=== PATIENT | male | born 1985 | race Caucasian/White ===

== ENCOUNTER 2017-11-04 20:01 | Emergency (ER) | END 2017-11-05 03:38 | disposition home or self-care (01) ==

== ENCOUNTER 2018-09-04 16:48 | Emergency (ER) | payer BC, MEDICAID ==
[~2018-09-04] VITALS: Ht 162.6 cm; Wt 120.0 kg
[~2018-09-04 16:48] MED LIST: ASPI-817 PO; FAMO-96 PO; HYDR-3498 PO; HYDR50TA15 PO
[2018-09-04 16:59] VITALS: Ht 162.6 cm; Wt 120.0 kg
--- NOTE | 2018-09-04 20:03 | ERD ---
ER Documentation Chief Complaint Chief Complaint "lump" noted on lateral L upper thigh side x 1 month HPI 32-year-old Fe male complaining of a "lump" on his lateral left thigh. Patient states that he had this lump for about 1 month, and last few days is starting to bother him. Described the sensation as irritating, but not painful. Denies injury. Denies erythema or exudate. Denies fever or chills. ROS All systems reviewed and are negative except as per history of present illness. Medications Home Meds Active Scripts Aspirin* (Aspirin* EC) 81 Mg Tablet.dr, 81 MG PO DAILY for 30 Days, TAB Prov:PASILABAN,KLAR F 11/05/17 Hydroxyzine Hcl* (Hydroxyzine Hcl*) 50 Mg Tablet, 50 MG PO Q6 PRN for ANXIETY, #40 TAB Prov:PASILABAN,KLAR F 11/05/17 Famotidine* (Pepcid*) 20 Mg Tablet, 20 MG PO BID for 4 Days, TAB Prov:ARSENIO COTTER PA-C 02/03/16 Hydrocodone Bit-Acetaminophen* (Otho*) 5-325 Mg Tab, 1 TAB PO Q6 PRN for PAIN, #7 TAB Prov:ARSENIO COTTER PA-C 02/03/16 Allergies Allergies: Coded Allergies: No Known Allergy (Unverified , 02/02/16) PMhx/Soc History of Surgery: Yes (RIGHT FOOT SX) Anesthesia Reaction: No Hx Neurological Disorder: No Hx Respiratory Disorders: No Hx Cardiac Disorders: No Hx Psychiatric Problems: No Hx Miscellaneous Medical Probl: No Hx Alcohol Use: Yes (STOPPED IN 2014) Hx Substance Use: Yes (MARIJUANA DAILY) Hx Tobacco Use: Yes Smoking Status: Current every day smoker Physical Exam Vitals Vital Signs Date Temp Pulse Resp B/P (MAP) Pulse Ox O2 O2 Flow FiO2 Time Delivery Rate 09/04/18 100.2 94 20 165/86 98 16:59 (112) Physical Exam General: Well-developed, w obese, conscious and coherent, in no distress Skin: Warm and dry without rash, good texture and turgor. No erythema, edema, or mass appreciated in the left lateral thigh, nontender. Head: Normocephalic without evidence of trauma Chest: Normal AP diameter. Good expansion without retractions. Nontender. Lungs are clear to auscultate bilaterally with good tidal volume Heart: Regular rate and rhythm. No murmur, rub, or gallops heard Extremities: Full range of motion. Good strength bilaterally. No erythema, ecchymosis, or edema. Peripheral pulses are intact. Sensation intact Neuro: Alert and oriented 4, GCS 15. Procedures/MDM Well-appearing obese 32-year-old male presents the ED complaining of a "lump" on his left upper thigh. On exam, the area that patient concerned to be a lump or normal fatty tissue. No mass, cellulitis, or abscess. Weight loss counseling provided to the patient. Patient appears well, stable for discharge and outpatient management. Medical decision making shared with patient and family. Education provided to patient and family. Patient and family expressed understanding of the plan. Medications on discharge: None. Follow-up: Primary care provider in 2-3 days or return to ED if worse. Disclaimer: Inadvertent spelling and grammatical errors are likely due to EHR/dictation software use and do not reflect on the overall quality of patient care. Also, please note that the electronic time recorded on this note does not necessarily reflect the actual time of the patient encounter. Departure Diagnosis: Primary Impression: Worried well Additional Impression: Obesity Condition: Stable Patient Instructions: Weight Management: Getting Started, Weight Management: Healthy Eating, Weight Management: Exercise and Activity Referrals: [facility] YOU HAVE RECEIVED A MEDICAL SCREENING EXAM AND THE RESULTS INDICATE THAT YOU DO NOT HAVE A CONDITION THAT REQUIRES URGENT TREATMENT IN THE EMERGENCY DEPARTMENT. FURTHER EVALUATION AND TREATMENT OF YOUR CONDITION CAN WAIT UNTIL YOU ARE SEEN IN YOUR DOCTORS OFFICE WITHIN THE NEXT 1-2 DAYS. IT IS YOUR RESPONSIBILITY TO MAKE AN APPOINTMENT FOR FOLOW-UP CARE. IF YOU HAVE A PRIMARY DOCTOR --you should call your primary doctor and schedule an appointment IF YOU DO NOT HAVE A PRIMARY DOCTOR YOU CAN CALL OUR PHYSICIAN REFERRAL HOTLINE AT IF YOU CAN NOT AFFORD TO SEE A PHYSICIAN YOU CAN CHOSE FROM THE FOLLOWING [facility] [address] [place] [facility] [address] [facility] [address] [facility] [address] [facility]. [facility] [address] [facility]. [facility] [address] Additional Instructions: FOLLOW UP WITH YOUR PRIMARY CARE PHYSICIAN. ARTURO ZAVALA NP Sep 04, 2018 20:03
[2018-09-04 20:18] VITALS: BP 135/86; PULSE 74; RESP 18
== END 2018-09-04 20:23 | disposition home or self-care (01) ==
LOC: FTE 16:48
DX: E66.9 Obesity, unspecified (principal); F17.210 Nicotine dependence, cigarettes, uncomplicated; R40.2412 Glasgow coma scale score 13-15, at arrival to emergency department; Z68.42 Body mass index [BMI] 45.0-49.9, adult; Z71.1 Person with feared health complaint in whom no diagnosis is made; Z79.82 Long term (current) use of aspirin
CPT/HCPCS: 99283